=== PATIENT | female | born 1950 | race Caucasian/White ===

== ENCOUNTER 2017-10-10 10:03 | Emergency (ER) | payer MEDICARE, OTHER ==
[2017-10-10 10:17] VITALS: BP 126/68
--- NOTE | 2017-10-10 14:30 | UC ---
General HPI - HPI Summary HPI Summary: TICK BITE LEFT NECK, REMOVED TICK YESTERDAY, HOWEVER SOME SMALL FRAGMENTS STILL REMAIN IN LEFT NECK. HISTORY OF LYME DISEASE 6 YRS AGO. - History of Current Complaint Chief Complaint: UCSkin Stated Complaint: TICK BITE Time Seen by Provider: 10/10/17 11:38 Hx Obtained From: Patient Onset/Duration: Sudden Onset, Lasting Days, Still Present Onset Severity: Mild Current Severity: Mild Pain Intensity: 0 Associated Signs & Symptoms: Negative: Fever, Trauma - Allergy/Home Medications Allergies/Adverse Reactions: Allergies Allergy/AdvReac Type Severity Reaction Status Date / Time Valsartan [From [employer] Allergy Rash Verified 10/10/17 10:17 Home Medications: Home Medications Amlodipine Besylate [Norvasc 5 mg tab] 5 mg PO DAILY 10/10/17 [History Confirmed 10/10/17] Atorvastatin* [Lipitor 20 MG*] 20 mg PO DAILY 10/10/17 [History Confirmed ] Cholecalciferol [Vitamin D] 1 tab PO DAILY 10/10/17 [History Confirmed 10/10/17] Estradiol (NF) 1 tab PO EVERY OTHER DAY 10/10/17 [History Confirmed 10/10/17] Estradiol VAGINAL TAB(NF) [Vagifem] 1 tab VAGINAL SEE INSTRUCTIONS 10/10/17 [ History Confirmed 10/10/17] Hydrochlorothiazide TAB* [Hydrodiuril TAB*] 12.5 mg PO DAILY 10/10/17 [History Confirmed 10/10/17] Labetalol TAB* [Trandate TAB*] 100 mg PO DAILY 10/10/17 [History Confirmed 10/10] LevoCETirizine TAB (NF) [Xyzal TAB (NF)] 5 mg PO DAILY 10/10/17 [History Confirmed 10/10/17] Levothyroxine TAB* [Synthorid 112 MCG TAB*] 112 mcg PO DAILY 10/10/17 [History Confirmed 10/10/17] Mometasone Furoate (Nasal) [Nasonex] 1 spray NASAL DAILY 10/10/17 [History Confirmed 10/10/17] PMH/Surg Hx/FS Hx/Imm Hx Previously Healthy: Yes - Surgical History Surgical History: Yes Surgery Procedure, Year, and Place: HYSTERECTOMY 1997 - Family History Known Family History: Negative: Blood Disorder - Social History Occupation: Retired Lives: With Family Alcohol Use: Rare Substance Use Type: None Smoking Status (MU): Never Smoked Tobacco - Immunization History Most Recent Influenza Vaccination: 08/2017 Review of Systems Constitutional: Negative Skin: Other - TICK BITE LEFT NECK Eyes: Negative ENT: Negative Respiratory: Negative Cardiovascular: Negative Gastrointestinal: Negative Genitourinary: Negative Motor: Negative Neurovascular: Negative Musculoskeletal: Negative Neurological: Negative Psychological: Negative Is Patient Immunocompromised?: No All Other Systems Reviewed And Are Negative: Yes Physical Exam Triage Information Reviewed: Yes Appearance: Well-Appearing, No Pain Distress, Well-Nourished Vital Signs: Initial Vital Signs Temp 97.3 F 10/10/17 10:13 Pulse 56 10/10/17 10:13 Resp 16 10/10/17 10:13 BP 126/68 10/10/17 10:13 Pulse Ox 96 10/10/17 10:13 Vital Signs Reviewed: Yes Eye Exam: Normal ENT Exam: Normal ENT: Positive: Normal ENT inspection Dental Exam: Normal Neck exam: Normal Neck: Positive: Supple, Nontender Respiratory Exam: Normal Respiratory: Positive: Chest non-tender, Lungs clear, Normal breath sounds, No respiratory distress, No accessory muscle use Cardiovascular Exam: Normal Cardiovascular: Positive: RRR, No Murmur Abdominal Exam: Normal Musculoskeletal Exam: Normal Neurological Exam: Normal Psychological Exam: Normal Skin: Positive: Other - LEFT NECK SMALL TICK FRAGMENT Course/Dx - Differential Dx - Multi-Symptom Differential Diagnoses: Metabolic Abnormality, Sepsis Provider Diagnoses: TICK BITE PROPHYLAXIS Discharge - Discharge Plan Condition: Stable Disposition: HOME Prescriptions: DOXYcycline CAP(*) [DOXYcycline 100MG CAP(*)] 200 mg PO ONCE #2 cap Patient Education Materials: Tick Bite (ED) Referrals: Ana Gallardo MD [Primary Care Provider] -
== END 2017-10-10 12:10 | disposition home or self-care (01) ==
LOC: UCEAST 10:03
DX: S10.96XA Insect bite of unspecified part of neck, initial encounter (principal); W57.XXXA Bitten or stung by nonvenomous insect and other nonvenomous arthropods, initial encounter; Y92.9 Unspecified place or not applicable
CPT/HCPCS: 99212; G0463

== ENCOUNTER 2018-01-13 07:11 | Emergency (ER) | payer MEDICARE, OTHER ==
[2018-01-13 07:24] VITALS: BP 142/87
[2018-01-13] MEDS ORDERED: Aspirin Low Dose CHEW TAB* 81 MG PO ONE (10:02)
--- NOTE | 2018-01-13 10:02 | UC ---
Mathieu De Los Santos Jennifer, scribed for Alia Amin DO on 01/13/18 at 0836 . Respiratory Complaint HPI - HPI Summary HPI Summary: The pt is a 67 y/o female who complains of a dry, non-productive cough that began five days ago. Pt reports the cough leads to chest pain. She additionally complains of sinus congestion that began three days ago, nasal congestion, chills, and right ear pain. The right ear pain is described as achey and pressure and is rated a 7/10. She has been using nasal irrigation three times a day for her nasal congestion. Pt reports she took some Tylenol for her ear pain. Pt denies fever, sweating, sore throat, nausea, vomiting, chest pain, shortness of breath, and abdominal pain. She denies past ear infections. - History of Current Complaint Chief Complaint: UCRespiratory Stated Complaint: EAR PAIN, UR COMPAINT Time Seen by Provider: 01/13/18 07:26 Hx Obtained From: Patient Onset/Duration: Sudden Onset, Lasting Days - 5 days, Still Present Timing: Constant Severity Initially: Moderate Severity Currently: Moderate Pain Intensity: 7 Pain Scale Used: 0-10 Numeric Character: Cough: Nonproductive Aggravating Factors: Nothing Alleviating Factors: Nothing Associated Signs And Symptoms: Positive: Chills, Nasal Congestion, Sinus Discomfort. Negative: Fever - Allergies/Home Medications Allergies/Adverse Reactions: Allergies Allergy/AdvReac Type Severity Reaction Status Date / Time valsartan Allergy Rash Verified 01/13/18 07:40 PMH/Surg Hx/FS Hx/Imm Hx Endocrine History: Thyroid Disease, Other - Hypercholesterolemia Other Endocrine History: Hypercholesterolemia Cardiovascular History: Hypertension - Surgical History Surgical History: Yes Surgery Procedure, Year, and Place: HYSTERECTOMY 1997 - Family History Known Family History: Positive: Cardiac Disease Negative: Blood Disorder - Social History Alcohol Use: Rare Substance Use Type: None Smoking Status (MU): Never Smoked Tobacco - Immunization History Most Recent Influenza Vaccination: 08/2017 Review of Systems Constitutional: Negative - Fever, sweating, Chills ENT: Negative - Sore throat, Ear Ache - Right ear, Sinus Congestion Respiratory: Negative - Shortness of breath, Cough - Non-productive Cardiovascular: Negative - Chest pain Gastrointestinal: Negative - Nausea, vomiting, abdominal pain All Other Systems Reviewed And Are Negative: Yes Physical Exam - Summary Physical Exam Summary: Appearance: Well-Appearing, No Pain Distress, Well-Nourished Eyes: conjunctiva clear, no discharge ENT: Hearing grossly normal, no muffled/hoarse voice. TMs normal, negative tonsillar swelling, negative tonsillar exudate, negative trismus. Sinus congestion, nasal drainage. Neck: Normal, Supple Respiratory/Lung Sounds: Lungs clear, Prolonged expiration at bilateral bases. No respiratory distress, No accessory muscle use Cardiovascular: RRR, No murmur Musculoskeletal: Normal Neurological: Alert, muscle tone normal Psychiatric:Normal, age appropriate behavior Skin: Normal, Warm, Dry, Normal color Triage Information Reviewed: Yes Vital Signs: Initial Vital Signs Temp 99.1 F 01/13/18 07:19 Pulse 69 01/13/18 07:19 Resp 18 01/13/18 07:19 BP 142/87 01/13/18 07:19 Pulse Ox 96 01/13/18 07:19 Vital Signs Reviewed: Yes UC Diagnostic Evaluation - Laboratory O2 Sat by Pulse Oximetry: 96 Respiratory Course/Dx - Course Course Of Treatment: Patient will be discharged with prescription for Albuterol , Tessalon, Mucinex and follow up from PCP. The patient is agreeable with this plan. Medications reviewed. Allergies reviewed. High blood pressure noted. - Differential Dx/Diagnosis Provider Diagnoses: Viral sinusitis, allergies, bronchospasms Discharge - Discharge Plan Condition: Stable Disposition: HOME Prescriptions: Albuterol HFA INHALER* [Ventolin HFA Inhaler*] 2 puff INH Q4H PRN #1 mdi PRN Reason: Sob/Wheezing Benzonatate CAP* [Tessalon 100 MG CAP*] 100 mg PO TID #30 cap guaiFENesin ER TAB [Mucinex*] 600 mg PO BID PRN #1 box PRN Reason: Cough Patient Education Materials: Sinusitis (ED), Allergies (ED), Bronchospasm (ED) Referrals: Ana Gallardo MD [Primary Care Provider] - (Follow up next Thusday as planned.) Additional Instructions: TRY USING THE NETTI POT IN THE MORNINGS DISCUSSED. YOU MUST ALWAYS USE CLEAN WATER. REMEMBER, POSTURE IS AN IMPORTANT FACTOR IN SINUS DRAINAGE. MOVE YOUR NECK, BREATHE. INHALED BRONCHODILATORS: You have received a prescription for an inhaled bronchodilator -- a medication which stimulates the airways in the lung to dilate. This improves the flow of air in asthma, bronchitis, and emphysema. These medicines have some similarity to adrenaline, and can cause similar side effects: shakiness, racing heart, and a sense of nervousness. These side effects decrease with time. Contact your doctor if these side effects are severe. Do not over-use the medicine. Too-frequent use of the inhaler may make it ineffective. Call your doctor if the inhaler is not controlling your symptoms at the prescribed doses. EXPECTORANT MEDICATION: WE SENT IN A SCRIPT FOR MUCINEX SO THAT IT IS EASIER FOR YOU TO PICK THE RIGHT MED AT THE PHARMACY. HOWEVER, YOU CAN ALSO GO TO THE [facility] AND BUY PLAIN GUAIFENESIN WITHOU BINDERS OR FILLERS. An expectorant medicine has been prescribed. This type of drug makes mucous thinner, helping the sinuses, nose, and bronchial tubes to remain free of pus and mucous. Expectorants make a cough less severe and more comfortable, and help infected sinuses drain. In general, antihistamines defeat the purpose of the expectorant by making mucous thicker. They should be avoided unless specifically recommended by your physician. TESSALON PERLES: You have received a prescription for Tessalon Perles (benzonatate). This is a non-narcotic medicine for relief of cough. It usually works in about 15- 20 minutes and lasts around four hours. Tessalon Perles should be swallowed. They should not be chewed or dissolved in the mouth (this can produce temporary numbing of the mouth and choking can occur). If you develop any adverse effects such as wheezing, shortness of breath, hives, rash, itching, or lightheadedness, please return at once. The documentation as recorded by the Mathieu watson Jennifer accurately reflects the service I personally performed and the decisions made by me, Alia Amin DO.
== END 2018-01-13 09:02 | disposition home or self-care (01) ==
LOC: UCEAST 07:11
DX: J32.8 Other chronic sinusitis (principal); J30.9 Allergic rhinitis, unspecified; J98.01 Acute bronchospasm; E07.9 Disorder of thyroid, unspecified; E78.00 Pure hypercholesterolemia, unspecified; I10 Essential (primary) hypertension; Z88.8 Allergy status to other drugs, medicaments and biological substances
CPT/HCPCS: 99212; G0463

== ENCOUNTER 2018-05-15 10:39 | Day surgery (SDC) | payer MEDICARE, OTHER ==
[~2018-05-15 10:39] MED LIST: Acetaminophen TAB* 325 MG PO PRN; Buffered Lidocaine 0.9% SYRIN* 5 ML/SYR SYRINGE INTRADERM ONE; Midazolam* 1 MG/ML 2 ML VIAL (2 MG) ONE
[2018-05-15] MEDS ORDERED: Lidocaine 1%* 5 ML VIAL ONE (11:10)
[2018-05-15] MEDS ORDERED: Cyclopentolate 1% OPTH.SOL* 2 ML BTL ONE (11:10)
[2018-05-15] MEDS ORDERED: Phenylephrine 2.5% OPTH.SOL* 2 ML BTL ONE (11:10)
[2018-05-15] MEDS ORDERED: Tropicamide 1% OPTH.SOL* BTL ONE (11:11)
[2018-05-15] MEDS ORDERED: Tetracaine 0.5% OPTH.SOL 4 ML* 1 DROP BTL ONE (11:11)
[2018-05-15] MEDS ORDERED: Neomycin/Polymy/Dex OPHTH.OIN* 3.5 GM ONE (11:11)
[2018-05-15] MEDS ORDERED: Ketorolac 0.5% OPHTH (NF) 0.5 % 5 ML BTL ONE (11:11)
[2018-05-15] MEDS ORDERED: fentaNYL* 50 MCG/ML 2 ML VIAL (100 MCG VIAL) ONE (12:28)
[2018-05-15 12:55] VITALS: BP 120/76
--- NOTE | 2018-05-15 14:44 | OP ---
DATE OF OPERATION/DATE OF DICTATION: 05/15/2018 - [facility] DATE OF : 1950. SURGEON: Dr. Luis Vera. HARP REPAIRER: None. ANESTHESIA: Topical with intravenous sedation. PRE-OP DIAGNOSIS: Cataract, right eye. POST-OP DIAGNOSIS: Cataract, right eye. OPERATIVE PROCEDURE: Phacoemulsification and cataract extraction with posterior chamber intraocular lens implant, right eye. COMPLICATIONS: None. BLOOD LOSS: None. DESCRIPTION OF PROCEDURE: The patient was brought to the operating room and received a small amount of intra-venous sedation. A drop of Tetracaine was placed in her right eye. She was prepped and draped in the usual sterile fashion for ophthalmic surgery and attention was directed to the right eye where a speculum was placed. A paracentesis was created at the 11 o'clock position and 0.1 cc of 1 percent preservative-free Lidocaine was injected into the anterior chamber followed by DisCoVisc. The eye was digitally stabilized while a 2.75 mm keratome was used to create a triplanar clear corneal incision at the 9 o'clock position. A continuous curvilinear capsulorrhexis was created with a cystotome and Utrata forceps. BSS on a cannula was used to hydrodissect the lens from the capsule. Phacoemulsification was performed in a divide-and- conquer technique to create four fragments which were removed. Residual cortical material was removed with irrigation and aspiration. DisCoVisc was used to inflate the capsular bag and an AUOOTO 17.0 diopter lens was folded and inserted into the capsular bag. DisCoVisc was removed using irrigation and aspiration. BSS on a cannula was used to hydrate the corneal stroma and seal the wound. At the end of the case the pupil was round and the lens was centered. The eye was of normal pressure and the wound was water tight. The speculum was removed and topical Maxitrol ointment was placed on the surface of the eye. The eye was closed, patched and shielded and the patient was sent to the recovery room in stable condition with post operative instructions and follow-up appointment given. [id number]/CPS #: [id number] MTDD
== END 2018-05-15 13:10 | disposition home or self-care (01) ==
LOC: OREAST 10:39
PROVIDERS: ATTEND Ophthalmology
DX: H25.11 Age-related nuclear cataract, right eye (principal); I10 Essential (primary) hypertension; E78.00 Pure hypercholesterolemia, unspecified; E03.9 Hypothyroidism, unspecified; J30.2 Other seasonal allergic rhinitis; Z68.34 Body mass index [BMI] 34.0-34.9, adult; M17.9 Osteoarthritis of knee, unspecified
CPT/HCPCS: A9270-GY; J2250; J3010; V2632

== ENCOUNTER 2018-05-22 07:10 | Day surgery (SDC) | payer MEDICARE, OTHER ==
[~2018-05-22 07:10] MED LIST changes: -Midazolam* 1 MG/ML 2 ML VIAL (2 MG) ONE
[2018-05-22] MEDS ORDERED: Phenylephrine 2.5% OPTH.SOL* 2 ML BTL ONE (07:47)
[2018-05-22] MEDS ORDERED: Tetracaine 0.5% OPTH.SOL 4 ML* 1 DROP BTL ONE (07:47)
[2018-05-22] MEDS ORDERED: Ketorolac 0.5% OPHTH (NF) 0.5 % 5 ML BTL ONE (07:47)
[2018-05-22] MEDS ORDERED: Neomycin/Polymy/Dex OPHTH.OIN* 3.5 GM ONE (07:47)
[2018-05-22] MEDS ORDERED: Tropicamide 1% OPTH.SOL* BTL ONE (07:47)
[2018-05-22] MEDS ORDERED: Lidocaine 1%* 5 ML VIAL ONE (07:47)
[2018-05-22] MEDS ORDERED: Cyclopentolate 1% OPTH.SOL* 2 ML BTL ONE (07:47)
[2018-05-22] MEDS ORDERED: Phenylephr/Ketorolac 1%/0.3% OPH DROP BTL ONE (07:47)
[2018-05-22] MEDS ORDERED: Midazolam* 1 MG/ML 2 ML VIAL (2 MG) ONE (07:48)
[2018-05-22 08:38] VITALS: BP 128/75
--- NOTE | 2018-05-22 10:43 | OP ---
DATE OF OPERATION/DATE OF DICTATION: 05/22/2018 - [facility] DATE OF : 1950. SURGEON: Dr. Luis Vera. WIRELESS SALES REPRESENTATIVE: None. ANESTHESIA: Topical with intravenous sedation. PRE-OP DIAGNOSIS: Cataract, left eye. POST-OP DIAGNOSIS: Cataract, left eye. OPERATIVE PROCEDURE: Phacoemulsification and cataract extraction with posterior chamber intraocular lens implant, left eye. COMPLICATIONS: None. BLOOD LOSS: None. DESCRIPTION OF PROCEDURE: The patient was brought to the operating room and received a small amount of intravenous sedation. A drop of Tetracaine was placed in her left eye. She was prepped and draped in the usual sterile fashion for ophthalmic surgery and attention was directed to the left eye where a speculum was placed. A paracentesis was created at the 5 o'clock position and 0.1 cc of 1 percent preservative-free Lidocaine was injected into the anterior chamber followed by DisCoVisc. The eye was digitally stabilized while a 2.75 mm keratome was used to create a triplanar clear corneal incision at the 3 o'clock position. A continuous curvilinear capsulorrhexis was created with a cystotome and Utrata forceps. BSS on a cannula was used to hydrodissect the lens from the capsule. Phacoemulsification was performed in a divide-and- conquer technique to create four fragments which were removed. Residual cortical material was removed with irrigation and aspiration. DisCoVisc was used to inflate the capsular bag and an AUOOTO 17.5 diopter lens was folded and inserted into the capsular bag. DisCoVisc was removed using irrigation and aspiration. BSS on a cannula was used to hydrate the corneal stroma and seal the wound. At the end of the case the pupil was round and the lens was centered. The eye was of normal pressure and the wound was water tight. The speculum was removed and topical Maxitrol ointment was placed on the surface of the eye. The eye was closed, patched and shielded and the patient was sent to the recovery room in stable condition with post operative instructions and follow-up appointment given. [id number]/CPS #: [id number] MTDD
== END 2018-05-22 08:36 | disposition home or self-care (01) ==
LOC: OREAST 07:10
PROVIDERS: ATTEND Ophthalmology
DX: H25.12 Age-related nuclear cataract, left eye (principal); E03.9 Hypothyroidism, unspecified; I10 Essential (primary) hypertension; E78.00 Pure hypercholesterolemia, unspecified; M19.90 Unspecified osteoarthritis, unspecified site
CPT/HCPCS: A9270-GY; C9447; J2250; V2632